=== PATIENT | female | born 1970 | race Caucasian/White ===

== ENCOUNTER → 2020-11-07 | Outpatient (CLI) | payer OTHER | LOC: EXRD 10:53 | DX: M79.604 Pain in right leg (principal); M54.9 Dorsalgia, unspecified; M47.817 Spondylosis without myelopathy or radiculopathy, lumbosacral region | CPT/HCPCS: 72100; 93971 ==

== ENCOUNTER → 2021-01-02 | Outpatient (CLI) | payer OTHER | LOC: KOH-I 09:28 | DX: M51.36 Other intervertebral disc degeneration, lumbar region (principal); M54.16 Radiculopathy, lumbar region; M51.37 Other intervertebral disc degeneration, lumbosacral region; M48.07 Spinal stenosis, lumbosacral region | CPT/HCPCS: 72148 ==

== ENCOUNTER → 2021-02-06 | Outpatient (CLI) | payer OTHER | LOC: KOH-I 02-05 14:30 | DX: M51.16 Intervertebral disc disorders with radiculopathy, lumbar region (principal); M51.36 Other intervertebral disc degeneration, lumbar region; M48.061 Spinal stenosis, lumbar region without neurogenic claudication; M48.07 Spinal stenosis, lumbosacral region | CPT/HCPCS: 72131 ==

== ENCOUNTER → 2021-12-12 | Outpatient (CLI) | payer OTHER | LOC: KOH-I 12:40 | DX: J18.9 Pneumonia, unspecified organism (principal) | CPT/HCPCS: 71046 ==